=== PATIENT | male | born 1935 | race African-American/Black ===

== ENCOUNTER 2022-12-19 12:13 | Outpatient (OUT) | payer MEDICARE, SELFPAY ==
[2022-12-19 13:04] LABS: Basophils Absolute Auto 0.1 10^3/uL (0.0-0.1); Basophils Percent Auto 1.4 % (0.2-2.0); Eosinophils Absolute Auto 0.3 10^3/uL (0.0-0.7); Hematocrit 37.8 % (42.0-54.0); Hemoglobin 12.5 g/dL (14.0-18.0); Immature Granulocytes Abs Auto 0.02 10^3/uL (0.00-0.03); Immature Granulocytes Pct Auto 0.3 % (0.0-0.5); Lymphocytes Absolute Auto 2.1 10^3/uL (1.2-3.8); Lymphocytes Percent Auto 29.3 % (20.5-60.0); Mean Corpuscular HGB Conc 33.1 g/dL (29.9-35.2); Mean Corpuscular Hemoglobin 31.2 pg (25.9-34.0); Mean Corpuscular Volume 94.3 fL (80.0-94.0); Mean Platelet Volume 10.5 fL (9.5-13.5); Monocytes Absolute Auto 0.8 10^3/uL (0.3-0.8); Monocytes Percent Auto 10.8 % (1.7-12.0); Neutrophils Absolute Auto 3.9 10^3/uL (1.4-6.5); Neutrophils Percent Auto 54.2 % (43.0-75.0); Platelet Count 236 10^3/uL (150-450); Red Blood Count 4.01 10^6/uL (4.70-6.10); Red Cell Distribution Width 14.1 % (11.0-15.0); White Blood Count 7.2 10^3/uL (4.0-11.0)
[2022-12-19 22:25] LABS: Alanine Aminotransferase 24 U/L (16-63); Albumin Level 3.9 g/dL (3.4-5.0); Alkaline Phosphatase 104 U/L (46-116); Anion Gap 15.2; Aspartate Amino Transferase 16 U/L (15-37); BUN Creatinine Ratio 24.1; Bilirubin Total 0.4 mg/dL (0.2-1.0); Calcium 9.4 mg/dL (8.5-10.1); Carbon Dioxide 23.8 mmol/L (21.0-32.0); Chloride 105 mmol/L (98-107); Chol HDL Ratio 2.5; Cholesterol 113 mg/dL (<=200); Estimated GFR (African America 56 (>=60); Estimated GFR (Non-African Ame 46 (>=60); Globulin 4.1 g/dL; Glucose 95 mg/dL (74-106); HDL Cholesterol 45 mg/dL (40-60); LDL Cholesterol Calculated 47.4 mg/dL; Sodium 139 mmol/L (136-145); Triglycerides 103 mg/dL (<=150); VLDL CHOLESTEROL 20.6 mg/dL
[2022-12-19 23:51] LABS: Estimated Average Glucose 189 mg/dL
[2022-12-19 23:52] LABS: Glycohemoglobin A1C 8.2 % (4.5-6.2)
[2022-12-20 08:34] LABS: Protein Creatinine Ratio Urine 0.18; Total Protein Urine Random 14.3 mg/dL (<=11.9)
== END 2022-12-19 12:14 ==
LOC: LAB 12:19
PROVIDERS: PCP Internal Medicine; Visit Provider Internal Medicine
DX: E78.5 Hyperlipidemia, unspecified (principal); E11.9 Type 2 diabetes mellitus without complications; E11.22 Type 2 diabetes mellitus with diabetic chronic kidney disease; I25.10 Atherosclerotic heart disease of native coronary artery without angina pectoris
CPT/HCPCS: 36415; 80053; 80061; 82570; 83036; 84156; 85025

== ENCOUNTER 2023-11-04 12:16 | Outpatient (OUT) | payer MEDICARE, SELFPAY ==
[2023-11-04 12:44] LABS: Basophils Absolute Auto 0.1 10^3/uL (0.0-0.1); Basophils Percent Auto 1.2 % (0.2-2.0); Eosinophils Absolute Auto 0.3 10^3/uL (0.0-0.7); Hemoglobin 12.9 g/dL (14.0-18.0); Immature Granulocytes Abs Auto 0.02 10^3/uL (0.00-0.03); Immature Granulocytes Pct Auto 0.2 % (0.0-0.5); Lymphocytes Absolute Auto 2.3 10^3/uL (1.2-3.8); Lymphocytes Percent Auto 28.7 % (20.5-60.0); Mean Corpuscular HGB Conc 32.3 g/dL (29.9-35.2); Mean Corpuscular Hemoglobin 30.9 pg (25.9-34.0); Mean Corpuscular Volume 95.7 fL (80.0-94.0); Mean Platelet Volume 10.8 fL (9.5-13.5); Monocytes Absolute Auto 0.7 10^3/uL (0.3-0.8); Monocytes Percent Auto 8.6 % (1.7-12.0); Neutrophils Absolute Auto 4.6 10^3/uL (1.4-6.5); Neutrophils Percent Auto 57.3 % (43.0-75.0); Platelet Count 220 10^3/uL (150-450); Red Blood Count 4.18 10^6/uL (4.70-6.10); Red Cell Distribution Width 13.8 % (11.0-15.0)
[2023-11-04 12:52] LABS: Creatinine Urine Random 171.82 mg/dL (20.00-300.00); Microalbum Creatinine Ratio Ur 11.6 mg/g (0.0-29.9)
[2023-11-04 13:12] LABS: Estimated Average Glucose 189 mg/dL; Glycohemoglobin A1C 8.2 % (4.5-6.2)
[2023-11-04 13:14] LABS: Alanine Aminotransferase 24 U/L (16-63); Albumin Globulin Ratio 0.9; Albumin Level 3.7 g/dL (3.4-5.0); Alkaline Phosphatase 116 U/L (46-116); Anion Gap 16.5; Aspartate Amino Transferase 20 U/L (15-37); BUN Creatinine Ratio 20.6; Bilirubin Total 0.6 mg/dL (0.2-1.0); Calcium 9.9 mg/dL (8.5-10.1); Carbon Dioxide 23.9 mmol/L (21.0-32.0); Chloride 103 mmol/L (98-107); Chol HDL Ratio 2.3; Cholesterol 118 mg/dL (<=200); Estimated GFR (African America 47 (>=60); Estimated GFR (Non-African Ame 38 (>=60); Globulin 4.3 g/dL; Glucose 166 mg/dL (74-106); HDL Cholesterol 51 mg/dL (40-60); LDL Cholesterol Calculated 49.2 mg/dL; Potassium 4.4 mmol/L (3.5-5.1); Sodium 139 mmol/L (136-145); Triglycerides 89 mg/dL (<=150); VLDL CHOLESTEROL 17.8 mg/dL
[2023-11-05 04:11] LABS: PSA, Free <0.02 ng/mL; Prostate Specific Ag <0.1 ng/mL (0.0-4.0)
== END 2023-11-04 12:17 | disposition home or self-care (01) ==
LOC: LAB 12:19
PROVIDERS: PCP Internal Medicine; Visit Provider Internal Medicine
DX: E78.5 Hyperlipidemia, unspecified (principal); E11.22 Type 2 diabetes mellitus with diabetic chronic kidney disease; N18.31 Chronic kidney disease, stage 3a; Z79.4 Long term (current) use of insulin; Z85.46 Personal history of malignant neoplasm of prostate
CPT/HCPCS: 36415; 80053; 80061; 82043; 82570; 83036; 84153; 84154; 85025

== ENCOUNTER 2023-12-12 11:07 | Outpatient (OUT) | payer MEDICARE, SELFPAY ==
--- NOTE | 2023-12-12 11:11 | US_ITS ---
[address] [address] Patient Name: LEANNE GRAHAM MRN: [id number] date: 1935 Sex: M Assigned Patient Location: US Current Patient Location: US Accession/Order Number: [id number] Exam Date: 12/12/2023 11:15 Report Date: 12/12/2023 14:25 At the request of: JASSON ERWIN Procedure: US renal BI EXAMINATION: US renal BI HISTORY: Adrenal Nodule F27.8 COMPARISON: TECHNIQUE: Ultrasound examination was performed of the bladder. FINDINGS: Right Kidney: Small in size, normal in contour. The cortex measures 0.9 cm. No solid cortical mass, hydronephrosis or obstructing nephrolithiasis. 3.7 cm area of anechoic echogenicity exophytic lower pole, simple cyst favored Height: 5.0 cm Length: 7.4 cm Width: 5.3 cm Left Kidney: Small in size, normal in contour. The cortex measures 0.8 cm. No solid cortical mass, hydronephrosis or obstructing nephrolithiasis Height: 5.9 cm Length: 8.6 cm Width: 4.8 cm The previously identified right adrenal nodule is not definitively seen on the current exam The visualized urinary bladder is normal with a volume of 71 mL US/US renal BI IMPRESSION: Bilateral renal cortical atrophy Right adrenal nodule was not seen on today's exam Electronically authenticated by: FLORIDA ROMERO Date: 12/12/2023 14:25
== END 2023-12-12 11:08 | disposition home or self-care (01) ==
LOC: US 11:07
PROVIDERS: PCP Internal Medicine; Visit Provider Urology
DX: E27.8 Other specified disorders of adrenal gland (principal)
CPT/HCPCS: 76775

== ENCOUNTER 2024-01-21 09:37 | Outpatient (OUT) | payer MEDICARE, SELFPAY ==
--- NOTE | 2024-01-21 09:40 | CT_ITS ---
[address] [address] Patient Name: LEANNE GRAHAM MRN: [id number] date: 1935 Sex: M Assigned Patient Location: CT Current Patient Location: CT Accession/Order Number: [id number] Exam Date: 01/21/2024 09:48 Report Date: 01/21/2024 10:50 At the request of: JASSON ERWIN Procedure: CT abdomen pelvis wo con EXAMINATION: CT abdomen pelvis wo con HISTORY: Adrenal Nodule COMPARISON: 12/12/2019 TECHNIQUE: Axial, Coronal, and Sagittal images were created without IV contrast. Dose reduction techniques were achieved by using automated exposure control and/or adjustment of mA and/or kV according to patient size and/or use of iterative reconstruction technique. FINDINGS: LUNG BASES: No visible pulmonary or pleural disease. LIVER: No enlargement, atrophy, abnormal density, or significant focal lesion. BILIARY: Cholelithiasis without CT evidence of acute cholecystitis PANCREAS: No lesion, fluid collection, ductal dilatation, or atrophy. SPLEEN: No enlargement or focal lesion. ADRENALS: 1.8 cm hypodense right adrenal nodule axial image 16 measuring -6 Hounsfield units. An adenoma is statistically favored. Similar appearing 0.7 cm nodule lateral limb of the left adrenal axial image 21. KIDNEYS: Right cortical hypodensities, cysts are favored. No hydronephrosis or obstructing nephrolithiasis BOWEL/MESENTERY: Mild colonic diverticulosis without evidence of acute diverticulitis. Nonobstructive bowel gas pattern. Normal appendix. AORTA/VASCULAR: No aortic aneurysm. Moderate calcific atherosclerosis RETROPERITONEUM: No mass or adenopathy. LYMPH NODES: No adenopathy. URINARY BLADDER: No visible focal wall thickening, lesion, or calculus. PELVIC ORGANS: Prior prostatectomy ABDOMINAL WALL: No mass or hernia. BONES: No bony lesion or fracture. OTHER: Negative. CT/CT abdomen pelvis wo con IMPRESSION: Cholelithiasis Bilateral adrenal nodules, 1.8 cm on the right, 0.7 cm the left lung possibly adenomas Electronically authenticated by: FLORIDA ROMERO Date: 01/21/2024 10:50
== END 2024-01-21 09:38 | disposition home or self-care (01) ==
LOC: CT 09:37
PROVIDERS: PCP Internal Medicine; Visit Provider Urology
DX: E27.8 Other specified disorders of adrenal gland (principal); K80.20 Calculus of gallbladder without cholecystitis without obstruction
CPT/HCPCS: 74176

== ENCOUNTER 2024-03-19 10:03 | Outpatient (OUT) | payer MEDICARE, SELFPAY ==
--- NOTE | 2024-03-19 10:00 | CA_ITS ---
Patient Name: LEANNE GRAHAM MR#: [id number] : 1935 Exam Date: 03/19/2024 Ordering Doctor: DR TOMAS WATSON M.D. ECHOCARDIOGRAM REPORT PROCEDURE: CA ECHO DOPPLER COMPLETE INDICATIONS: Preoperation for non-coronary cardiac surgery, DC, cardiac stent, hypertension, diabetes COMPARISON: None. DESCRIPTION: COMPLETE ECHOCARDIOGRAM Real-time transthoracic echocardiography with 2D, M-mode, spectral and color flow Doppler performed. QUALITY: Technical quality was good. LEFT VENTRICLE: Normal chamber size. Thickened septal wall. LV EF: Global left ventricular systolic function is difficult to assess but appears preserved; visually estimated ejection fraction is 55%. Unable to assess regional wall motion abnormalities. DIASTOLIC: Normal diastolic function. ATRIAL SEPTUM: Visually appears intact. LEFT ATRIUM: Normal chamber size. RIGHT ATRIUM: Normal chamber size. RIGHT VENTRICLE: Poorly seen. Normal chamber size. Right ventricular systolic function appears reduced. TRICUSPID VALVE: Normal mobility and thickness. No stenosis with no regurgitation. Unable to assess right-sided pressures due to lack of measurable tricuspid regurgitation. MITRAL VALVE: Normal mobility and thickness. No evidence of mitral valve stenosis. There is no mitral annular calcification. Trivial mitral regurgitation. AORTIC VALVE: Normal trileaflet appearance. Mildly calcified aortic valve. Mildly diminished mobility. No evidence of aortic valve stenosis. DVI 0.6. Trivial aortic regurgitation. AORTIC ROOT: Normal diameter and appearance. Ascending aorta is normal in size. PULMONIC VALVE: Normal thickness and mobility. No stenosis. No regurgitation. PERICARDIUM: No evidence of pericardial effusion. IVC: Collapses with inspirations. CONCLUSION: 1. Global left ventricular systolic function is difficult to assess but appears preserved; visually estimated ejection fraction is 55% 2. The right ventricle is poorly seen; it appears normal in size with reduced systolic function 3. Normal diastolic function 4. No significant valvular abnormalities Adult Echocardiography Procedure Report Left Ventricle LVEDD (3.7 - 5.6 cm): 3.07 cm LVESD (2.2 - 4.0 cm): 2.27 cm LVIVS thickness (0.6 - 1.2 cm): 1.29 cm LVPW thickness (0.5 - 1.0 cm): 1.05 cm e': 0.09 m/s E - e': 6.33 LVOT Max Gradient: 3.07 mmRi LVOT Area (cm2): 0.88 m/s Peak Velocity (LVOT): 0.88 m/s Mean Velocity (LVOT): 0.60 m/s LVOT Diameter 1.79 cm Left Ventricular Ejection Fraction: Left Atrium LA Volume Index (2D A2C): 23.62 ml/m2 Left Atrium Systolic Dimension: 3.24 cm Mitral Valve MV E to A Ratio: 0.68 MV Max Gradient: MV Mean Gradient: Mitral Valve A-Wave Peak Velocity: 0.88 m/s Mitral Valve E-Wave Peak Velocity: 0.60 m/s Cardiovascular Orifice Area: Right Ventricle RV Internal Diastolic Dimension: Aorta AO Root Diam: 3.38 cm Ascending Ao Diam: 2.51 cm Aortic Valve AoV Area (Peak Richard): 1.57 cm2, 1.57 cm2 AoV Area (VTI): 1.80 cm2, 1.80 cm2 Deceleration [place]: Pressure Half-Time: Peak Velocity(Antegrade Flow): 1.40 m/s Peak Gradient(Antegrade Flow): 7.84 mm[Hg] Mean Velocity(Antegrade Flow): 0.87 m/s Mean Gradient(Antegrade Flow): 3.64 mm[Hg] Velocity Time Integral: 29.41 cm Tricuspid Valve Peak Velocity (Regurgitant Flow): Peak Velocity: Pulmonic Valve Mean Gradient: 1.73 mm[Hg] Mean Velocity: 0.62 m/s Peak Velocity: 0.90 m/s, 0.89 m/s Peak Gradient: 3.17 mm[Hg], 3.22 mm[Hg] Right Atrium Right Atrium Systolic Pressure: 34.64 ml, 34.64 ml Dictated by: Una Lynn M.D. on 03/19/2024 at 17:02 Approved by: Una Lynn M.D. on 03/19/2024 at 17:08
== END 2024-03-19 10:04 | disposition home or self-care (01) ==
LOC: CARD 10:04
PROVIDERS: PCP Internal Medicine; Visit Provider Internal Medicine Interventional Cardiology
DX: Z01.810 Encounter for preprocedural cardiovascular examination (principal); I25.10 Atherosclerotic heart disease of native coronary artery without angina pectoris
CPT/HCPCS: 93306